=== PATIENT | male | born 1970 | race Caucasian/White ===

== ENCOUNTER 2025-05-17 19:14 | Emergency (ER) | payer BC, SELFPAY ==
[2025-05-17 19:18] VITALS: BP 134/73
--- NOTE | 2025-05-17 19:30 | ED.GENMED ---
ED Provider Triage
<Kenzie Suh PA-C - Last Filed: 05/17/25 19:31>
-
Patient seen by provider in Triage?: Seen in Triage
Attestation: A medical screening examination has been initiated by a qualified medical provider. Based on the assessment performed at this time, it has been determined that an emergent medical condition may exist and the patient has been informed
that further medical evaluation and possible additional diagnostic testing may be needed.
HPI: 54yo RHD male here with R elbow swelling x 3 days. Atraumatic. Seen at urgent care and started on Bactrim. Here with persistent symptoms. No f/c.
GENERAL: Alert , in no apparent distress
EYE: No visual abnormalities.
NECK: Trachea midline
ENT: No visible abnormalities.
LUNGS: No acute respiratory distress
NEUROLOGICAL: Alert and oriented
SKIN: Skin intact. No visible changes.
MUSCULOSKELETAL: Moving extremities normally. Evidence of R olecranon bursitis noted with erythema and some serous drainage.
PSYCH: Normal and appropriate interaction.
This is a medical evaluation conducted in person to initiate diagnostic evaluation and provide initial therapeutics. Please see further documentation by the treating clinician.
CBC, CMP, wound culture, and R elbow x-rays ordered.
History of Present Illness
<Kenzie Suh PA-C - Last Filed: 05/17/25 19:31>
General
Chief Complaint: Skin Problem
Time Seen by Provider: 05/17/25 23:46
<Indio Colvin Jr., PA-C - Last Filed: 05/18/25 01:20>
General
Source: patient
Exam Limitations: none
Nursing documentation reviewed up to this point in time: agreed with
History of Present Illness
History of Present Illness:
54-year-old male presenting to the emergency department today with concerns of right elbow swelling and redness that is worsening over the past few days. Diagnosed with possible cellulitis to the area Mr. With Bactrim starting 3 days ago from
urgent care. Denies systemic symptoms no history of immunosuppression or diabetes. Able to move his elbow normally
Review of Systems
<Indio Colvin Jr., PA-C - Last Filed: 05/18/25 01:20>
Review of Systems
Allergies reviewed?: Yes
All Other Systems: ROS reviewed and negative except as documented in HPI and ROS
Phy Exam
<Indio Colvin Jr., PA-C - Last Filed: 05/18/25 01:20>
Physical Exam
Physical Exam:
GENERAL: Alert , in no apparent distress
EYE: pupils equal and reactive
NECK: Supple, no significant adenopathy.
ENT: o/p clr, mmm.
CARDIAC: Regular rate and rhythm .
LUNGS: Clear breath sounds bilaterally, no acute respiratory distress, no wheezes/rales/rhonchi
ABDOMEN: Soft, without focal tenderness, no r/g, no cvat
NEUROLOGICAL: Alert and oriented, no focal neuro deficits
SKIN: Warm and dry, skin intact.
MUSCULOSKELETAL: Redness and swelling overlying the right elbow overlying the olecranon process however induration of the overlying skin, no specific fluctuation no softness to the olecranon bursa, well perfused.
PSYCH: Normal and appropriate interaction.
Course
<Kenzie Suh PA-C - Last Filed: 05/17/25 19:31>
Orders/Labs/Results
Orders:
Orders
05/17/25 19:29
CR Elbow - Right Min 3 Views Urgent
Comment:
Reason For Exam: swelling
05/17/25 19:34
Complete Blood Count/With Diff Urgent
Comprehensive Metabolic Panel Urgent
Wound Culture [Wound/Abscess/Other Culture] Urgent
FARZANA Source: Bursa
Specimen Description:
Date Specimen was Collected: 05/17/25
Time Specimen was Collected: 19:32
Comment: R elbow
Abnormal Lab Results
05/17/25
19:34
WBC 11.8 H 10^3/uL
(4.8-10.8)
RBC 3.89 L 10^6/uL
(4.70-6.10)
Hgb 12.8 L g/dL
(13.0-18.0)
Hct 35.3 L %
(39.0-52.0)
MCH 32.9 H pg
(27.0-31.0)
Absolute Neuts (auto) 8.8 H 10^3/uL
(1.4-6.5)
Absolute Monos (auto) 0.8 H 10^3/uL
(0.1-0.6)
Lymphocytes % 15.7 L %
(20.5-51.1)
05/17/25 19:34
05/17/25 19:34
Vital Signs
Initial and Last Documented VS:
Initial Vital Signs
Temp Pulse Resp BP Pulse Ox
98.5 F 82 18 134/73 99
05/17/25 19:18 05/17/25 19:18 05/17/25 19:18 05/17/25 19:18 05/17/25 19:18
Last Documented Vital Signs
Temp Pulse Resp BP Pulse Ox
97.8 F 65 16 125/70 98
05/17/25 23:41 05/17/25 23:41 05/17/25 23:41 05/17/25 23:41 05/17/25 23:41
<Daniel Cleveland, - Last Filed: 05/18/25 00:24>
Orders/Labs/Results
Orders:
Orders
05/17/25 19:29
CR Elbow - Right Min 3 Views Urgent
Comment:
Reason For Exam: swelling
05/17/25 19:34
Complete Blood Count/With Diff Urgent
Comprehensive Metabolic Panel Urgent
Wound Culture [Wound/Abscess/Other Culture] Urgent
[facility]AR[facility] Source: Bursa
Specimen Description:
Date Specimen was Collected: 05/17/25
Time Specimen was Collected: 19:32
Comment: R elbow
Abnormal Lab Results
05/17/25
19:34
WBC 11.8 H 10^3/uL
(4.8-10.8)
RBC 3.89 L 10^6/uL
(4.70-6.10)
Hgb 12.8 L g/dL
(13.0-18.0)
Hct 35.3 L %
(39.0-52.0)
MCH 32.9 H pg
(27.0-31.0)
Absolute Neuts (auto) 8.8 H 10^3/uL
(1.4-6.5)
Absolute Monos (auto) 0.8 H 10^3/uL
(0.1-0.6)
Lymphocytes % 15.7 L %
(20.5-51.1)
05/17/25 19:34
05/17/25 19:34
Vital Signs
Initial and Last Documented VS:
Initial Vital Signs
Temp Pulse Resp BP Pulse Ox
98.5 F 82 18 134/73 99
05/17/25 19:18 05/17/25 19:18 05/17/25 19:18 05/17/25 19:18 05/17/25 19:18
Last Documented Vital Signs
Temp Pulse Resp BP Pulse Ox
97.8 F 65 16 125/70 98
05/17/25 23:41 05/17/25 23:41 05/17/25 23:41 05/17/25 23:41 05/17/25 23:41
<Indio Colvin Jr., PA-C - Last Filed: 05/18/25 01:20>
Orders/Labs/Results
Orders:
Orders
05/17/25 19:29
CR Elbow - Right Min 3 Views Urgent
Comment:
Reason For Exam: swelling
05/17/25 19:34
Complete Blood Count/With Diff Urgent
Comprehensive Metabolic Panel Urgent
Wound Culture [Wound/Abscess/Other Culture] Urgent
[facility] Source: Bursa
Specimen Description:
Date Specimen was Collected: 05/17/25
Time Specimen was Collected: 19:32
Comment: R elbow
Abnormal Lab Results
05/17/25
19:34
WBC 11.8 H 10^3/uL
(4.8-10.8)
RBC 3.89 L 10^6/uL
(4.70-6.10)
Hgb 12.8 L g/dL
(13.0-18.0)
Hct 35.3 L %
(39.0-52.0)
MCH 32.9 H pg
(27.0-31.0)
Absolute Neuts (auto) 8.8 H 10^3/uL
(1.4-6.5)
Absolute Monos (auto) 0.8 H 10^3/uL
(0.1-0.6)
Lymphocytes % 15.7 L %
(20.5-51.1)
05/17/25 19:34
05/17/25 19:34
Vital Signs
Initial and Last Documented VS:
Initial Vital Signs
Temp Pulse Resp BP Pulse Ox
98.5 F 82 18 134/73 99
05/17/25 19:18 05/17/25 19:18 05/17/25 19:18 05/17/25 19:18 05/17/25 19:18
Last Documented Vital Signs
Temp Pulse Resp BP Pulse Ox
97.8 F 65 16 125/70 98
05/17/25 23:41 05/17/25 23:41 05/17/25 23:41 05/17/25 23:41 05/17/25 23:41
Procedures
<Indio Colvin Jr., PA-C - Last Filed: 05/18/25 01:20>
Incision/Drainage/Joint Aspiration
Right Elbow:
Anethesia: 1% Lidocaine with Epi
Preparation: cleaned with alcohol wipe
Type of procedure: incise and drain
Nature of site: abscess
Description of abscess: less than 3cm
Loculations broken up: Yes
How much fluid was obtained?: small amount
Fluid description: purulent
Treatment: left open for drainage
<Indio Colvin Jr., PA-C - Last Filed: 05/18/25 01:20>
MDM/Problems Addressed
MDM/Problems Addressed:
54-year-old male presenting to the emergency department today with concerns of right elbow swelling redness. Appears to be consistent with a small abscess with small amount of surrounding cellulitis. Did not seem to be consistent with olecranon
bursitis not located specifically at the olecranon bursa. Was already taking Bactrim over the past 3 days. On arrival vital signs normal afebrile patient with no systemic symptoms and no immunosuppressive history. Very slight white count on labs.
Able to move the elbow no evidence of septic arthritis. Small incision was made with moderate purulent drainage. Patient advised for close monitoring at home and given strict return precautions but otherwise with drainage hopefully symptoms will
start to improve over the next few days. Advised for close follow-up
<SAE Connolly Last Filed: 05/17/25 19:31>
*Pulse Oximetry
SaO2: 99
Oxygen Mode of Delivery: Room air
<Indio Colvin Jr., PA-C - Last Filed: 05/18/25 01:20>
*Pulse Oximetry
Patient hypoxic: no (98)
*Critical Care Note
Total Time (30-74mins, 75-104mins- exclusive of procedures): Not Applicable
ED Attending Note
<Kenzie Suh PA-C - Last Filed: 05/17/25 19:31>
-
Portions of this chart may have been created with voice recognition software.� Occasional wrong word or��sound alike� substitutions may have occurred due to the inherent limitations of voice recognition software.
<Daniel Cleveland DO - Last Filed: 05/18/25 00:24>
ED Attending Note
Patient seen and examined by attending physician: Yes
I performed the substantive portion of visit, reviewed & personally made and approve the management plan that is documented in note by myself or MEGHAN.: Yes
Discharge Plan
Departure
Patient Disposition: Home (Routine Discharge)
Date of Disposition: 05/18/25
Time of Disposition: 01:19
Patient with high blood pressure during this ER visit?: No
Condition: Good
Covid-19: Not Applicable
Discharge Problem:
Abscess of arm, right
Instructions: Skin Abscess
Referrals:
Holger Henson PA [Family Provider, Family Practice]
Activity Restrictions/Additional Instructions:
You came to the emergency department today with concerns of elbow swelling. You had an incision and drainage to drain pus. Please use warm compresses to the area and follow-up closely with the primary care doctor within the next few days. Return
for any worsening, new or concerning symptoms.
Interventions
Interventions:
*Risk Screen - Suicide Last Done: 05/17/25 19:18
*General Assessment Last Done: 05/17/25 19:18
*Neglect/Abuse Screening Last Done: 05/17/25 23:41
*ED- Fall Risk Assessment Last Done: 05/17/25 23:41
*ED COVID-19 Vaccine History Last Done: 05/17/25 23:41
ED-Skin Assessment Last Done: 05/17/25 23:41
Discharge Date and Time
Print Language: SWEDISH
[2025-05-17 19:46] LABS: Hematocrit 35.3 % (39.0-52.0); Hemoglobin 12.8 g/dL (13.0-18.0); Mean Corp Hgb Conc. 36.3 g/dL (33.0-37.0); Mean Corpuscular Volume 90.7 fL (80.0-94.0); Nucleated Red Blood Cells % 0 % (-); Platelet Count 212 10^3/uL (130-400); Red Cell Dist. Width 12.4 % (11.5-14.5)
[2025-05-17 20:08] LABS: ALT (SGPT) 16 U/L (0-50); AST (SGOT) 22 U/L (17-59); Albumin 4.3 g/dl (3.5-5.0); Alkaline Phosphatase 110 U/L (38-126); Blood Urea Nitrogen 15 mg/dl (9-20); Calcium 9.5 mg/dl (8.4-10.2); Carbon Dioxide 27 mmol/L (22-30); Chloride 104 mmol/L (98-107); Glucose 77 mg/dl (70-99); Potassium 4.1 mmol/L (3.5-5.1); Sodium 138 mmol/L (135-145); Total Protein 6.8 g/dl (6.3-8.2); eGFR > 60.00
[2025-05-17 23:41] VITALS: BP 125/70; BMI 25.1
== END 2025-05-18 01:48 | disposition home or self-care (01) ==
LOC: EMR 19:14
PROVIDERS: Physician Assistant; EMERGENCY PHYSICIAN Emergency Medicine; FAMILY PHYSICIAN Nurse Practitioner Family
DX: L02.413 Cutaneous abscess of right upper limb (principal)
CPT/HCPCS: 10060; 99284; 73080; 80053; 85025; 87070; 87147; 87205